=== PATIENT | female | born 1950 | race Caucasian/White ===

== ENCOUNTER → 2017-04-07 | Outpatient (CLI) | payer MEDICARE, OTHER ==
[~2017-04-07] MED LIST: CELE200C PO; LEVO100T5 PO; QUET50TA5 PO
[2017-04-07 14:24] LABS: MICROSCOPIC NOT IND
[2017-04-07 14:32] LABS: CULTURE INDICATED? NO
== END | disposition home or self-care (01) ==
LOC: STAR 12:52
PROVIDERS: ATTEND Orthopaedic Surgery
DX: Z01.818 Encounter for other preprocedural examination (principal); M19.011 Primary osteoarthritis, right shoulder
CPT/HCPCS: 81003; 87081; 93005